=== PATIENT | male | born 1945 | race Caucasian/White ===

== ENCOUNTER 2017-10-28 12:02 | Day surgery (SDC) | payer OTHER ==
[2017-10-28] MEDS ORDERED: FENTAnyl 50 MCG/ML VIAL (14:50)
[2017-10-28] MEDS ORDERED: MIDAZOLAM 1 MG/ML 2 ML INJ ×2 (14:50)
== END 2017-10-28 14:51 | disposition home or self-care (01) ==
LOC: GIL 12:02
DX: K92.1 Melena (principal); D12.3 Benign neoplasm of transverse colon; K64.8 Other hemorrhoids; I10 Essential (primary) hypertension
CPT/HCPCS: 45380; 88305